=== PATIENT | male | born 1980 | race Two or more races ===

== ENCOUNTER 2017-08-23 17:39 | Emergency (ER) | payer OTHER ==
[~2017-08-23] VITALS: Ht 172.7 cm; Wt 108.9 kg
[2017-08-23 17:46] VITALS: BP 129/88
== END 2017-08-23 18:01 | disposition left against medical advice (07) ==
LOC: ER 17:46
DX: M79.602 Pain in left arm (principal); Z53.21 Procedure and treatment not carried out due to patient leaving prior to being seen by health care provider

== ENCOUNTER 2017-10-18 12:41 | Inpatient (IN) | payer OTHER ==
[~2017-10-18] VITALS: Ht 172.7 cm; Wt 107.9 kg
[2017-10-18] MEDS ORDERED: SODIUM CHLORIDE 0.9% 1,000 ML IV ONE (14:22)
[2017-10-18] MEDS ORDERED: CLINDAMYCIN 600MG IV 50 ML IV ONE (14:30)
[2017-10-18 15:21] LABS: Basophils # (auto) 0 uL; Basophils % (auto) 0.2 % (0.0-2.0); Eosinophils # (auto) 0.9 uL; Eosinophils % (auto) 3.8 % (0.0-7.0); Hematocrit 36.4 % (41.0-53.0); Hemoglobin 12.4 g/dL (13.5-17.5); Lymphocytes # (auto) 2.2 uL; Lymphocytes % (auto) 9.1 % (10.0-50.0); Mean Corpuscular Hemoglobin 28.8 pg (28.0-32.0); Mean Corpuscular Hgb Conc. 34.2 g/dL (32.0-36.0); Mean Corpuscular Volume 84.2 fL (80.0-100.0); Monocytes # (auto) 2.2 uL; Monocytes % (auto) 9.4 % (0.0-12.0); Neutrophils # (auto) 18.6 uL; Neutrophils % (auto) 77.5 % (37.0-80.0); Platelet Count (auto) 244 10^3/uL (140-450); Red Blood Cells 4.32 10^6/uL (4.5-5.90); Red Cell Distribution Width 13.6 % (11.8-14.3)
[2017-10-18 15:37] LABS: Albumin 3.1 g/dL (3.4-5.0); BUN/Creatinine Ratio 11.6; Bilirubin, Total 1.1 mg/dL (0.2-1.0); Calcium 8.8 mg/dL (8.5-10.1); Magnesium 2.4 mg/dL (1.6-2.6); Potassium 3.9 mmol/L (3.5-5.1); Total Protein 7.9 g/dL (6.4-8.2)
[2017-10-18] MEDS ORDERED: LEVOFLOXACIN 500MG 100 ML IV ONE (17:00)
[2017-10-18 17:15] VITALS: BP 126/78
[2017-10-18] MEDS: ONDANSETRON HCL 4 MG/2 ML VIAL IV PRN (18:33)
[2017-10-18] MEDS: MORPHINE SULFATE 4 MG/ML SYR/VIAL IV PRN (18:34)
[2017-10-18] MEDS: CLINDAMYCIN 600MG IV 50 ML IV SCH (21:22)
[2017-10-18 22:53] VITALS: BP 121/79
[2017-10-19] MEDS ORDERED: ACETAMINOPHEN 325 MG TAB PO PRN (00:45)
[2017-10-19] MEDS: CLINDAMYCIN 600MG IV 50 ML IV SCH (05:39)
[2017-10-19 05:43] VITALS: BP 118/64
[2017-10-19 07:50] VITALS: BP 110/67
[2017-10-19] MEDS: LEVOFLOXACIN 500MG 100 ML IV SCH (10:00)
[2017-10-19] MEDS ORDERED: PIPERACILLIN-TAZOB 3.375GM 50 ML IV SCH ×2 (10:00→12:00)
[2017-10-19 10:29] LABS: INR 1.05 (0.9-1.15); Partial Thromboplastin Time 31.3 sec (22.64-33.71); Prothrombin Time 11.5 sec (9.37-12.3)
[2017-10-19 11:51] VITALS: BP 111/63
[2017-10-19] MEDS ORDERED: ACYCLOVIR SOD 50MG/ML 800 MG in SODIUM CHL 0.9% 250 ML IV SCH (12:00)
[2017-10-19] MEDS: PIPERACILLIN-TAZOB 3.375GM 50 ML IV SCH ×2 (12:13→18:51)
[2017-10-19] MEDS: ACYCLOVIR SOD 50MG/ML 800 MG in SODIUM CHL 0.9% 250 ML IV SCH ×2 (14:08→21:13)
[2017-10-19 16:40] VITALS: BP 118/73
[2017-10-19] MEDS ORDERED: LIDOCAINE 2%HCL (LOCAL ANESTH.) INJ 20ML MDV ONE (18:50)
[2017-10-19] MEDS: MORPHINE SULFATE 4 MG/ML SYR/VIAL IV PRN (21:14)
[2017-10-19 21:33] VITALS: BP 127/73
[2017-10-20] MEDS: PIPERACILLIN-TAZOB 3.375GM 50 ML IV SCH ×4 (01:21→17:43)
[2017-10-20 04:31] VITALS: BP 112/61
[2017-10-20] MEDS: ACYCLOVIR SOD 50MG/ML 800 MG in SODIUM CHL 0.9% 250 ML IV SCH ×3 (05:00→20:43)
[2017-10-20 08:59] VITALS: BP 113/72
[2017-10-20] MEDS: LEVOFLOXACIN 500MG 100 ML IV SCH (10:01)
[2017-10-20 12:11] VITALS: BP 112/69
[2017-10-20 16:45] VITALS: BP 123/78
[2017-10-20] MEDS: MORPHINE SULFATE 4 MG/ML SYR/VIAL IV PRN (20:43)
[2017-10-20 22:00] VITALS: BP 122/78
[2017-10-21] MEDS: PIPERACILLIN-TAZOB 3.375GM 50 ML IV SCH ×3 (00:33→11:17)
[2017-10-21] MEDS: ACYCLOVIR SOD 50MG/ML 800 MG in SODIUM CHL 0.9% 250 ML IV SCH ×3 (04:31→21:25)
[2017-10-21 05:00] VITALS: BP 113/66
[2017-10-21 08:00] VITALS: BP 120/70
[2017-10-21] MEDS: MORPHINE SULFATE 4 MG/ML SYR/VIAL IV PRN ×3 (08:28→21:25)
[2017-10-21 08:59] VITALS: BP 120/70
[2017-10-21] MEDS: LEVOFLOXACIN 500MG 100 ML IV SCH (09:51)
[2017-10-21 13:00] VITALS: BP 108/60
[2017-10-21] MEDS: ONDANSETRON HCL 4 MG/2 ML VIAL IV PRN (13:30)
[2017-10-21 17:00] VITALS: BP 110/63
[2017-10-21] MEDS ORDERED: VANCOMYCIN 1,500 MG in D5W 5% 250 ML IV ONE (18:15)
[2017-10-21 22:00] VITALS: BP 127/71
[2017-10-22] MEDS: VANCOMYCIN 1,250 MG in SODIUM CHL 0.9% 250 ML IV SCH ×3 (00:59→17:19)
[2017-10-22 05:04] VITALS: BP 125/66
[2017-10-22 06:18] LABS: Basophils # (auto) 0.1 uL; Basophils % (auto) 0.7 % (0.0-2.0); Eosinophils # (auto) 1.5 uL; Hemoglobin 14.3 g/dL (13.5-17.5); Lymphocytes # (auto) 3.1 uL; Lymphocytes % (auto) 27.2 % (10.0-50.0); Mean Corpuscular Hemoglobin 29.1 pg (28.0-32.0); Mean Corpuscular Hgb Conc. 34.1 g/dL (32.0-36.0); Mean Corpuscular Volume 85.4 fL (80.0-100.0); Monocytes # (auto) 0.8 uL; Monocytes % (auto) 7.3 % (0.0-12.0); Neutrophils # (auto) 5.9 uL; Neutrophils % (auto) 51.8 % (37.0-80.0); Nucleated Red Blood Cells % 0.1 %; Platelet Count (auto) 308 10^3/uL (140-450); Red Blood Cells 4.91 10^6/uL (4.5-5.90); Red Cell Distribution Width 13.7 % (11.8-14.3); White Blood Cell 11.3 10^3/uL (4.4-10.8)
[2017-10-22 06:34] LABS: BUN/Creatinine Ratio 11.9; Calcium 8.7 mg/dL (8.5-10.1)
[2017-10-22 09:00] VITALS: BP 119/63
[2017-10-22] MEDS: ACYCLOVIR SOD 50MG/ML 800 MG in SODIUM CHL 0.9% 250 ML IV SCH ×3 (09:46→20:54)
[2017-10-22] MEDS: MORPHINE SULFATE 4 MG/ML SYR/VIAL IV PRN (09:47)
[2017-10-22 13:00] VITALS: BP 149/73
[2017-10-22 17:33] VITALS: BP 152/74
[2017-10-22] MEDS ORDERED: ACETAMINOPHEN 325 MG TAB PO PRN (18:00)
[2017-10-22] MEDS: HYDROcodone-ACET 10/325MG TAB PO PRN (20:55)
[2017-10-23] MEDS: VANCOMYCIN 1,250 MG in SODIUM CHL 0.9% 250 ML IV SCH ×3 (01:52→17:10)
[2017-10-23] MEDS: ACYCLOVIR SOD 50MG/ML 800 MG in SODIUM CHL 0.9% 250 ML IV SCH ×3 (04:44→21:03)
[2017-10-23 05:30] VITALS: BP 122/80
[2017-10-23 09:00] VITALS: BP 119/77
[2017-10-23] MEDS: HYDROcodone-ACET 10/325MG TAB PO PRN ×4 (09:07→22:40)
[2017-10-23 13:00] VITALS: BP 112/72
[2017-10-23 16:39] VITALS: BP 116/70
[2017-10-23 22:00] VITALS: BP 123/83
[2017-10-24] MEDS: VANCOMYCIN 1,250 MG in SODIUM CHL 0.9% 250 ML IV SCH ×2 (00:50→09:14)
[2017-10-24] MEDS: ACYCLOVIR SOD 50MG/ML 800 MG in SODIUM CHL 0.9% 250 ML IV SCH ×3 (05:04→21:19)
[2017-10-24 05:24] VITALS: BP 118/70
[2017-10-24 06:28] LABS: Basophils # (auto) 0.1 uL; Basophils % (auto) 0.8 % (0.0-2.0); Eosinophils # (auto) 1.6 uL; Eosinophils % (auto) 13.3 % (0.0-7.0); Hemoglobin 13.8 g/dL (13.5-17.5); Lymphocytes # (auto) 3.3 uL; Lymphocytes % (auto) 27.6 % (10.0-50.0); Mean Corpuscular Hemoglobin 28.6 pg (28.0-32.0); Mean Corpuscular Hgb Conc. 33.6 g/dL (32.0-36.0); Mean Corpuscular Volume 85.1 fL (80.0-100.0); Monocytes # (auto) 0.7 uL; Monocytes % (auto) 5.9 % (0.0-12.0); Neutrophils # (auto) 6.3 uL; Neutrophils % (auto) 52.4 % (37.0-80.0); Platelet Count (auto) 343 10^3/uL (140-450); Red Blood Cells 4.82 10^6/uL (4.5-5.90); Red Cell Distribution Width 13.7 % (11.8-14.3)
[2017-10-24 06:47] LABS: BUN/Creatinine Ratio 13.8; Calcium 8.8 mg/dL (8.5-10.1); Potassium 4.2 mmol/L (3.5-5.1)
[2017-10-24 09:00] VITALS: BP 117/75
[2017-10-24] MEDS: HYDROcodone-ACET 10/325MG TAB PO PRN (09:25)
[2017-10-24 13:00] VITALS: BP 114/60
[2017-10-24] MEDS ORDERED: MORPHINE SULFATE 4 MG/ML SYR/VIAL IV ONE (16:15)
[2017-10-24] MEDS: VANCOMYCIN 1GM/250ML 250 ML IV SCH (16:42)
[2017-10-24 17:00] VITALS: BP 115/91
[2017-10-24 22:00] VITALS: BP 113/77
[2017-10-25] VITALS (7 sets, daily range): BP systolic 108–125; BP diastolic 72–77
[2017-10-25] MEDS: VANCOMYCIN 1GM/250ML 250 ML IV SCH (01:08)
[2017-10-25] MEDS: ACYCLOVIR SOD 50MG/ML 800 MG in SODIUM CHL 0.9% 250 ML IV SCH ×3 (04:57→21:32)
[2017-10-25] MEDS: HYDROcodone-ACET 10/325MG TAB PO PRN ×4 (04:57→21:32)
[2017-10-25] MEDS ORDERED: ALBUTEROL SULF 2.5 MG/0.5ML(0.5%) NEB SOLN NEB PRN (08:45)
[2017-10-25] MEDS ORDERED: VANCOMYCIN PER PHARMACY 1,000 MG IV SCH (09:45)
[2017-10-25] MEDS: VANCOMYCIN 1,500 MG in D5W 5% 250 ML IV SCH (19:09)
[2017-10-26 05:00] VITALS: BP 116/67
[2017-10-26] MEDS: HYDROcodone-ACET 10/325MG TAB PO PRN ×3 (05:33→23:13)
[2017-10-26] MEDS: ACYCLOVIR SOD 50MG/ML 800 MG in SODIUM CHL 0.9% 250 ML IV SCH ×3 (05:33→21:02)
[2017-10-26 05:58] LABS: Basophils # (auto) 0.1 uL; Basophils % (auto) 0.7 % (0.0-2.0); Eosinophils # (auto) 1.4 uL; Eosinophils % (auto) 14.1 % (0.0-7.0); Hematocrit 42.5 % (41.0-53.0); Hemoglobin 14.4 g/dL (13.5-17.5); Lymphocytes % (auto) 29.4 % (10.0-50.0); Mean Corpuscular Hemoglobin 28.9 pg (28.0-32.0); Mean Corpuscular Hgb Conc. 33.8 g/dL (32.0-36.0); Mean Corpuscular Volume 85.3 fL (80.0-100.0); Monocytes # (auto) 0.7 uL; Monocytes % (auto) 7.1 % (0.0-12.0); Neutrophils % (auto) 48.7 % (37.0-80.0); Nucleated Red Blood Cells % 0.2 %; Platelet Count (auto) 356 10^3/uL (140-450); Red Blood Cells 4.98 10^6/uL (4.5-5.90); Red Cell Distribution Width 13.9 % (11.8-14.3); White Blood Cell 10.2 10^3/uL (4.4-10.8)
[2017-10-26 06:28] LABS: BUN/Creatinine Ratio 14.6
[2017-10-26 06:31] LABS: Bilirubin, Total 0.3 mg/dL (0.2-1.0); Total Protein 7.4 g/dL (6.4-8.2)
[2017-10-26] MEDS: VANCOMYCIN 1,500 MG in D5W 5% 250 ML IV SCH ×2 (06:56→18:31)
[2017-10-26 09:00] VITALS: BP 116/78
[2017-10-26] MEDS ORDERED: MORPHINE SULFATE 4 MG/ML SYR/VIAL IM ONE (11:30)
[2017-10-26] MEDS ORDERED: MORPHINE SULFATE 4 MG/ML SYR/VIAL IV ONE (11:45)
[2017-10-26 13:00] VITALS: BP 125/66
[2017-10-26 17:01] VITALS: BP 124/74
[2017-10-26 22:13] VITALS: BP 116/67
[2017-10-27 04:41] VITALS: BP 107/54
[2017-10-27] MEDS: ACYCLOVIR SOD 50MG/ML 800 MG in SODIUM CHL 0.9% 250 ML IV SCH ×3 (05:02→21:05)
[2017-10-27 06:00] LABS: Basophils # (auto) 0.1 uL; Basophils % (auto) 0.8 % (0.0-2.0); Eosinophils # (auto) 1.6 uL; Hematocrit 43.7 % (41.0-53.0); Hemoglobin 14.7 g/dL (13.5-17.5); Lymphocytes % (auto) 27.2 % (10.0-50.0); Mean Corpuscular Hemoglobin 28.5 pg (28.0-32.0); Mean Corpuscular Hgb Conc. 33.7 g/dL (32.0-36.0); Mean Corpuscular Volume 84.8 fL (80.0-100.0); Monocytes # (auto) 0.7 uL; Monocytes % (auto) 6.3 % (0.0-12.0); Neutrophils # (auto) 5.8 uL; Neutrophils % (auto) 51.7 % (37.0-80.0); Nucleated Red Blood Cells % 0.1 %; Platelet Count (auto) 365 10^3/uL (140-450); Red Blood Cells 5.16 10^6/uL (4.5-5.90); Red Cell Distribution Width 13.5 % (11.8-14.3); White Blood Cell 11.2 10^3/uL (4.4-10.8)
[2017-10-27 06:19] LABS: BUN/Creatinine Ratio 15.7; Calcium 8.9 mg/dL (8.5-10.1)
[2017-10-27 08:20] VITALS: BP 127/69
[2017-10-27] MEDS: HYDROcodone-ACET 10/325MG TAB PO PRN ×2 (08:20→13:13)
[2017-10-27] MEDS: VANCOMYCIN 1,500 MG in D5W 5% 250 ML IV SCH ×2 (09:21→21:05)
[2017-10-27 13:17] VITALS: BP 113/60
[2017-10-27] MEDS ORDERED: ASCORBIC ACID 500 MG TAB PO ONE (15:00)
[2017-10-27] MEDS ORDERED: MULTIPLE VITAMIN TAB PO ONE (15:00)
[2017-10-27 22:00] VITALS: BP 116/70
[2017-10-28 05:00] VITALS: BP 106/60
[2017-10-28] MEDS: ACYCLOVIR SOD 50MG/ML 800 MG in SODIUM CHL 0.9% 250 ML IV SCH (06:52)
[2017-10-28 07:56] VITALS: BP 113/73
[2017-10-28] MEDS: VANCOMYCIN 1,500 MG in D5W 5% 250 ML IV SCH ×2 (09:23→21:11)
[2017-10-28] MEDS: MULTIPLE VITAMIN TAB PO SCH (09:23)
[2017-10-28] MEDS: ASCORBIC ACID 500 MG TAB PO SCH (09:23)
[2017-10-28 11:53] VITALS: BP 127/72
[2017-10-28] MEDS: ACYCLOVIR 400 MG TAB PO SCH ×2 (14:45→22:55)
[2017-10-28 16:59] VITALS: BP 118/69
[2017-10-28 22:00] VITALS: BP 132/80
[2017-10-28] MEDS: HYDROcodone-ACET 10/325MG TAB PO PRN (22:55)
[2017-10-29 05:00] VITALS: BP 119/73
[2017-10-29] MEDS: ACYCLOVIR 400 MG TAB PO SCH (05:42)
[2017-10-29 08:51] VITALS: BP 119/65
[2017-10-29] MEDS: MULTIPLE VITAMIN TAB PO SCH (09:15)
[2017-10-29] MEDS: ASCORBIC ACID 500 MG TAB PO SCH (09:15)
[2017-10-29] MEDS: VANCOMYCIN 1,500 MG in D5W 5% 250 ML IV SCH (09:15)
[2017-10-29 13:16] VITALS: BP 131/70
== END 2017-10-29 14:20 | DRG 728 ==
LOC: ER 12:41 → EAST 12:42 → EDUNIT# 12:42 → EAST 10-21 10:07
PROVIDERS: ADMIT Internal Medicine; ATTEND Internal Medicine
PROC: 0V95XZZ Drainage of Scrotum, External Approach (ICD-10-PCS; principal; 2017-10-18)
DX: N49.2 Inflammatory disorders of scrotum (principal); I86.1 Scrotal varices; N45.1 Epididymitis; N43.3 Hydrocele, unspecified; Z83.3 Family history of diabetes mellitus
CPT/HCPCS: 36415; 76870; 80048; 80053; 80202; 83605; 83735; 85025; 85610; 85730; 87040; 87077; 87081; 87186; 87205; 94761; 96365; J1956; J2405; J2543; J3490; J7060

== ENCOUNTER 2019-07-03 06:33 | Inpatient (IN) | payer OTHER ==
[~2019-07-03] VITALS: Ht 203.2 cm; Wt 105.0 kg
[2019-07-03] MEDS ORDERED: METOCLOPRAMIDE HCL 5MG/ml INJ 2ml VIAL IV PRN (07:00)
[2019-07-03] MEDS ORDERED: fentaNYL CITRATE 100 MCG/2 ML VL IV PRN (07:00)
[2019-07-03] MEDS ORDERED: KETOROLAC TROMETH 30 MG/ML 1ML VIAL IV ONE (07:00)
[2019-07-03] MEDS ORDERED: LIDOCAINE HCL 2% TOP JELLY 5ML TOP ONE (07:03)
[2019-07-03] MEDS ORDERED: ROCURONIUM 10MG/ML 10ML VIAL IV ONE (07:03)
[2019-07-03] MEDS ORDERED: SODIUM CHLORIDE LOCK 40 ML ONE (07:03)
[2019-07-03] MEDS ORDERED: fentaNYL CITRATE 10 ML ONE (07:03)
[2019-07-03] MEDS ORDERED: fentaNYL CITRATE 100 MCG/2 ML VL ONE (07:03)
[2019-07-03] MEDS ORDERED: MIDAZOLAM HCL 1MG/1ML-2 ML VIAL ONE (07:03)
[2019-07-03] MEDS ORDERED: ONDANSETRON HCL 4 MG/2 ML VIAL ONE (07:03)
[2019-07-03] MEDS ORDERED: LIDOCAINE 2% (LOCAL ANESTH.) PF 5ml SDV ONE (07:03)
[2019-07-03] MEDS ORDERED: LIDOCAINE 1% HCL (LOCAL ANESTH.) INJ 20ML MDV ONE ×2 (07:08→08:02)
[2019-07-03] MEDS ORDERED: BUPIVACAINE HCL 50 ML ONE (07:09)
[2019-07-03] MEDS ORDERED: ceFOXitin 2GM/100ML 100 ML IV ONE (07:27)
[2019-07-03] MEDS ORDERED: HEPARIN SODIUM (PORCINE) 5000 UNITS/ML 1ML VIAL ONE (07:35)
[2019-07-03] MEDS ORDERED: MEPERIDINE HCL (50 MG/ML) 1 ML VIAL ONE (07:53)
[2019-07-03] MEDS ORDERED: PROPOFOL 10 MG/ML 20 ML IV ONE (08:12)
[2019-07-03] MEDS ORDERED: GLYCOPYRROLATE 0.2 MG/ML 1ML VIAL ONE (08:55)
[2019-07-03] MEDS ORDERED: NEOSTIGMINE 1 MG/ML INJ (10mg/10ML VIAL) ONE (08:55)
[2019-07-03] MEDS ORDERED: KETOROLAC TROMETH 60MG/2ML VIAL ONE (08:55)
[2019-07-03] MEDS ORDERED: OXYCODONE W/ ACETAMINOPHEN 5/325MG TABLET PO PRN (10:30)
[2019-07-03] MEDS ORDERED: HYDROmorphone HCL 2 MG/ML VL ONE (11:38)
[2019-07-03] MEDS: HYDROmorphone HCL 2 MG/ML VL IV PRN ×2 (11:40→11:50)
--- NOTE | 2019-07-03 14:00 | NUR ---
POST OP ADMIT Received reports from [facility], S/P Hernia Repair with Mesh performed by Dr. Carreno. Patient was transferred to room alert and oriented, not in respiratory distress. Post op pain on 03/06 rate. With abdominal dressing dry and intact covered with abdominal binder, RENETTA drain in placed draining to serous output in moderate amount. Oriented to floor policy. Bed alarm on and side rails up x2. Will continue to monitor.
[2019-07-03 15:22] VITALS: BP 113/62
[2019-07-03] MEDS: MORPHINE SULF INJ 2 MG/ML SYRINGE 1ML IV PRN ×2 (16:23→22:42)
[2019-07-03] MEDS: SODIUM CHLORIDE 0.9% 1,000 ML IV SCH (16:27)
--- NOTE | 2019-07-03 19:00 | NUR ---
Drained 25ml of sanguinous output on RENETTA.
--- NOTE | 2019-07-03 19:20 | NUR ---
Opening Shift Note Received report from Fide SUAREZ. Assumed care of patient, awake and alert, guards at bedside. No S/S of distress/SOB, with moderate post op pain, dressing c/d/i. Instructed on POC and to call for assist PRN, will continue to monitor for changes Q1hr and PRN.
[2019-07-03 22:32] VITALS: BP 115/63
[2019-07-04 05:22] VITALS: BP 93/59
[2019-07-04] MEDS: SODIUM CHLORIDE 0.9% 1,000 ML IV SCH ×2 (05:30→13:10)
[2019-07-04 05:40] LABS: Basophils # (auto) 0 uL; Basophils % (auto) 0.3 % (0.0-2.0); Eosinophils # (auto) 0.1 uL; Eosinophils % (auto) 0.7 % (0.0-7.0); Hematocrit 41.9 % (41.0-53.0); Hemoglobin 14.1 g/dL (13.5-17.5); Lymphocytes # (auto) 1.8 uL; Lymphocytes % (auto) 17.7 % (10.0-50.0); Mean Corpuscular Hemoglobin 29.1 pg (28.0-32.0); Mean Corpuscular Hgb Conc. 33.7 g/dL (32.0-36.0); Mean Corpuscular Volume 86.1 fL (80.0-100.0); Monocytes # (auto) 0.9 uL; Monocytes % (auto) 8.5 % (0.0-12.0); Neutrophils # (auto) 7.5 uL; Neutrophils % (auto) 72.8 % (37.0-80.0); Platelet Count (auto) 170 10^3/uL (140-450); Red Blood Cells 4.87 10^6/uL (4.5-5.90); White Blood Cell 10.3 10^3/uL (4.4-10.8)
[2019-07-04 06:03] LABS: Calcium 8.2 mg/dL (8.5-10.1); Potassium 4.2 mmol/L (3.5-5.1)
[2019-07-04 06:06] LABS: BUN/Creatinine Ratio 16.1
--- NOTE | 2019-07-04 07:30 | NUR ---
Opening Shift Note Assumed care of patient, awake and alert. No S/S of distress/SOB or pain. Instructed on POC and to call for assist PRN, will continue to monitor for changes Q1hr and PRN.
[2019-07-04 09:18] VITALS: BP 112/69
--- NOTE | 2019-07-04 09:30 | NUR ---
PT NOTES PT INTRODUCED TO INCENTIVE SPIROMETER. PURPOSE AND USE EXPLAINED TO PT. DEMONSTRATED PROPER USE TO PT AND ENCOURAGED PT TO USE I.S. EVERY HOUR WHEN AWAKE, AT LEAST TEN TIMES AT A TIME. PT VERBALIZED UNDERSTANDING AND RETURNED DEMONSTRATION. ABDOMINAL DRESSING CLEAN DRY AND INTACT. RENETTA DRAIN IN PLACE, DRAINING SANGUINOUS FLUID. PT PLACED ON BILATERAL SCDs.
[2019-07-04] MEDS ORDERED: PANTOPRAZOLE 40 MG TAB PO SCH (10:00)
[2019-07-04] MEDS ORDERED: ENOXAPARIN SOD 40 MG/0.4 ML SYRINGE SC SCH (10:00)
--- NOTE | 2019-07-04 10:00 | NUR ---
IV removal IV DC'd with clean sterile technique, catheter fully intact. Pressure dressing applied to site. Patient tolerated well. NOTE: IV FOUND INFILTRATED. PT REPORTED TENDERNESS. SWELLING ON SITE NOTED.
[2019-07-04] MEDS: OXYCODONE W/ ACETAMINOPHEN 5/325MG TABLET PO PRN ×2 (10:34→18:31)
[2019-07-04 13:09] VITALS: BP 131/71
[2019-07-04] MEDS ORDERED: CEFOXITIN 2 GM IV ONE (14:08)
--- NOTE | 2019-07-04 15:00 | NUR ---
IV INSERTION ATTEMPTED X 3 UNSUCCESSFUL. WILL HAVE ANOTHER NURSE TRY.
--- NOTE | 2019-07-04 15:30 | NUR ---
SPOKE TO DR JOANN AVILEZ UPDATED WITH PT'S STATUS. PER PT WILL GET DISCHARGED TODAY. OK TO DISCONTINUE IV.
[2019-07-04 16:55] VITALS: BP 126/64
--- NOTE | 2019-07-04 18:37 | NUR ---
Discharge instructions given TO PT AND PHOTOENGRAVING FINISHER as ordered. Encourage to follow up with PMD as instructed. All questions and concerns addressed. Patient verbalized understanding. Medication reconciliation form completed and copy given to patient. PT INSTRUCTED ON DRAINING RENETTA DRAIN AND GIVEN A SPECIMEN CUP TO USE FOR COLLECTION AND MEASUREMENT. PT VERBALIZED UNDERSTANDING.
== END 2019-07-04 18:50 | DRG 355 ==
LOC: SUR 06:33 → EAST 15:47
PROVIDERS: ADMIT Internal Medicine
PROC: 0DBU0ZZ Excision of Omentum, Open Approach (ICD-10-PCS; 2019-07-03)
PROC: 0WUF0KZ Supplement Abdominal Wall with Nonautologous Tissue Substitute, Open Approach (ICD-10-PCS; 2019-07-03)
PROC: 0WUF07Z Supplement Abdominal Wall with Autologous Tissue Substitute, Open Approach (ICD-10-PCS; principal; 2019-07-03 07:37)
DX: K43.0 Incisional hernia with obstruction, without gangrene (principal); E66.9 Obesity, unspecified; K42.0 Umbilical hernia with obstruction, without gangrene; J45.909 Unspecified asthma, uncomplicated; K66.0 Peritoneal adhesions (postprocedural) (postinfection); Z68.25 Body mass index [BMI] 25.0-25.9, adult; Z79.899 Other long term (current) drug therapy
CPT/HCPCS: 36415; 80048; 85025; 87081; G0378; J0694; J1885; J2001; J2250; J2405; J2704; J3490